=== PATIENT | female | born 1935 | race Caucasian/White ===

== ENCOUNTER 2018-05-28 17:07 | Inpatient (IN) | payer OTHER ==
[~2018-05-28] VITALS: Ht 160 cm; Wt 40.8 kg
[2018-05-28 17:07] VITALS: BP_SYST 116
[~2018-05-28 17:07] MED LIST: AMIO200T PO; DICL-8 PO; LISI10TA5 PO; METH2.5T PO; PRED5TAB PO; TRAZ50TA54 PO
[2018-05-28] MEDS ORDERED: CLINDAMYCIN 600 mg/50mL D5W 50 ML IV ONE (17:30)
[2018-05-28] MEDS ORDERED: VANCOMYCIN HCL 1,000 MG in NS 250 ML IV ONE (17:45)
[2018-05-28] MEDS: PIPERACILLIN/TAZO 3.375/DEX-IS 50 ML IV SCH (18:00)
[2018-05-28 18:17] LABS: HEMATOCRIT 30.5 % (36-48); HEMOGLOBIN 10.5 g/dL (12.0-16.0); MEAN CORPUSCULAR HEMOGLOBIN 31 pg (27-31); MEAN CORPUSCULAR HGB CONC 34 % (32-36); MEAN CORPUSCULAR VOLUME 90 fL (79.0-98.0); PLATELET COUNT (AUTO) 540 K/uL (130-430)
[2018-05-28 18:23] LABS: ANION GAP 10 (5-15); CALCIUM 9.1 mg/dL (8.4-11.0); CHLORIDE 97 mmol/L (98-107); CREATININE 0.73 mg/dL (0.55-1.30); GLUCOSE 88 mg/dL (70-99); POTASSIUM 4.2 mmol/L (3.5-5.1); SODIUM SERUM 130 mmol/L (136-145); UREA NITROGEN, BLOOD 29 mg/dL (8-21)
[2018-05-28 18:25] LABS: BAND % (MANUAL) 4 % (0-6); BASOPHILS % (MANUAL) 0 % (0-2); EOSINOPHILS % (MANUAL) 0 % (0-7); LYMPHOCYTES % (MANUAL) 4 % (20-46); MONOCYTES % (MANUAL) 7 % (0-11)
[2018-05-28 18:28] LABS: ALANINE AMINOTRANSFERASE 37 U/L (12-78); ALBUMIN 2.9 g/dL (3.4-4.8); ASPARTATE AMINOTRANSFERASE 48 U/L (10-37); TOTAL BILIRUBIN 0.4 mg/dL (0.0-1.0)
[2018-05-28] MEDS ORDERED: PIPERACILLIN/TAZOBACTAM 3.375 GM/VIAL (ZOSYN) IV ONE (19:15)
[2018-05-28] MEDS ORDERED: VANCOMYCIN HCL 1000 MG/VIAL IV ONE (20:01)
[2018-05-28] MEDS ORDERED: IBUP-1969 PO (20:01)
[2018-05-28] MEDS ORDERED: HYDR-4272 PO (20:01)
[2018-05-28] MEDS ORDERED: LISI10TA5 PO (20:01)
[2018-05-28] MEDS ORDERED: ZOLPIDEM TARTRATE 5 MG TABLET PO PRN (21:00)
[2018-05-28] MEDS ORDERED: ACETAMINOPHEN 325 MG TABLET PO PRN (21:00)
[2018-05-28 21:19] VITALS: BP_SYST 119
[2018-05-28 21:35] LABS: BILIRUBIN,URINE NEGATIVE (NEGATIVE); BLOOD, URINE 1+ (NEGATIVE); CLARITY/URINE SL CLOUDY (CLEAR); COLOR,URINE YELLOW (YELLOW); GLUCOSE,URINE NEGATIVE (NEGATIVE); KETONES,URINE NEGATIVE (NEGATIVE); LEUKOCYTE ESTERASE ,URINE 2+ (NEGATIVE); NITRITE, URINE NEGATIVE (NEGATIVE); PROTEIN URINE TRACE (NEGATIVE); UROBILINOGEN,URINE 0.2 (0.2-1.0)
[2018-05-28 21:53] LABS: BACTERIA,URINE FEW /HPF (None Seen); RBC,URINE 0-3 /HPF (0-3)
[2018-05-28 21:55] LABS: MUCUS,URINE None Seen /LPF (None Seen)
[2018-05-28] MEDS ORDERED: LEVOFLOXACIN 500 MG/D5W 100 ML IV SCH (22:00)
[2018-05-28] MEDS ORDERED: LEVOFLOXACIN 500 MG/D5W 100 ML IV ONE (22:30)
[2018-05-28] MEDS: LISINOPRIL 10 MG TABLET (PRINIVIL) PO SCH (22:31)
[2018-05-28] MEDS: HYDROcodone/ACETAMIN 5-325 MG TAB (NORCO/ VICODIN) PO PRN (23:48)
[2018-05-29 04:32] VITALS: BP_SYST 94
[2018-05-29] MEDS: PIPERACILLIN/TAZO 3.375/DEX-IS 50 ML IV SCH ×2 (06:00)
[2018-05-29 06:55] LABS: BASOPHILS # (AUTO) 0.1 K/uL (0.0-0.2); BASOPHILS % (AUTO) 0.3 % (0.0-2.0); EOSINOPHILS # (AUTO) 0.1 K/uL (0.0-0.4); EOSINOPHILS % (AUTO) 0.3 % (0.0-4.0); HEMATOCRIT 27.3 % (36-48); LYMPHOCYTES # (AUTO) 0.5 K/uL (1.0-5.5); MEAN CORPUSCULAR HEMOGLOBIN 30 pg (27-31); MEAN CORPUSCULAR HGB CONC 33 % (32-36); MEAN CORPUSCULAR VOLUME 89 fL (79.0-98.0); MONOCYTES # (AUTO) 1.2 K/uL (0.0-1.0); MONOCYTES % (AUTO) 6.8 % (1.7-9.3); NEUTROPHILS # (AUTO) 15.5 K/uL (1.8-7.7); NEUTROPHILS % (AUTO) 89.6 % (40.0-70.0); PLATELET COUNT (AUTO) 410 K/uL (130-430); RED BLOOD CELL COUNT(AUTO) 3.06 MIL/uL (4.2-6.2); WHITE BLOOD COUNT (AUTO) 17.4 K/uL (4.8-10.8)
[2018-05-29 07:23] LABS: ALANINE AMINOTRANSFERASE 32 U/L (12-78); ALBUMIN 1.9 g/dL (3.4-4.8); ANION GAP 8 (5-15); ASPARTATE AMINOTRANSFERASE 43 U/L (10-37); CALCIUM 8.3 mg/dL (8.4-11.0); CHLORIDE 101 mmol/L (98-107); CREATININE 0.56 mg/dL (0.55-1.30); GLUCOSE 88 mg/dL (70-99); POTASSIUM 3.6 mmol/L (3.5-5.1); SODIUM SERUM 134 mmol/L (136-145); TOTAL BILIRUBIN 0.4 mg/dL (0.0-1.0); UREA NITROGEN, BLOOD 21 mg/dL (8-21)
[2018-05-29 08:18] VITALS: BP_SYST 118
[2018-05-29] MEDS: IBUPROFEN 600 MG TABLET PO PRN ×2 (08:59→19:07)
[2018-05-29] MEDS: FAMOTIDINE 20 MG TABLET PO SCH (08:59)
[2018-05-29] MEDS: PREDNISONE 10 MG TABLET PO SCH (09:00)
[2018-05-29 12:10] VITALS: BP_SYST 112
[2018-05-29] MEDS ORDERED: ENOXAPARIN SODIUM 30 MG/0.3 ML SYRINGE SUBCUT ONE (13:15)
[2018-05-29] MEDS: POTASSIUM CHLORIDE 10 MEQ in NACL 0.9% 1,000 ML IV SCH (14:50)
[2018-05-29] MEDS: HYDROcodone/ACETAMIN 5-325 MG TAB (NORCO/ VICODIN) PO PRN (15:58)
[2018-05-29 16:00] VITALS: BP_SYST 115
[2018-05-29 19:50] VITALS: BP_SYST 116
[2018-05-29] MEDS: LEVOFLOXACIN 250 MG/D5W 50 ML IV SCH (21:10)
[2018-05-29] MEDS: LISINOPRIL 10 MG TABLET (PRINIVIL) PO SCH (21:10)
[2018-05-30] MEDS: HYDROcodone/ACETAMIN 5-325 MG TAB (NORCO/ VICODIN) PO PRN ×2 (01:30→18:43)
[2018-05-30 01:43] VITALS: BP_SYST 129
[2018-05-30] MEDS: POTASSIUM CHLORIDE 10 MEQ in NACL 0.9% 1,000 ML IV SCH ×2 (04:48→13:11)
[2018-05-30] MEDS: IBUPROFEN 600 MG TABLET PO PRN (04:49)
[2018-05-30 07:03] LABS: BASOPHILS % (AUTO) 0.2 % (0.0-2.0); EOSINOPHILS # (AUTO) 0.1 K/uL (0.0-0.4); EOSINOPHILS % (AUTO) 0.9 % (0.0-4.0); HEMOGLOBIN 9.2 g/dL (12.0-16.0); LYMPHOCYTES % (AUTO) 6.3 % (20.5-51.5); MEAN CORPUSCULAR HEMOGLOBIN 30 pg (27-31); MEAN CORPUSCULAR HGB CONC 34 % (32-36); MEAN CORPUSCULAR VOLUME 88 fL (79.0-98.0); MONOCYTES # (AUTO) 0.9 K/uL (0.0-1.0); MONOCYTES % (AUTO) 5.6 % (1.7-9.3); NEUTROPHILS # (AUTO) 13.5 K/uL (1.8-7.7); PLATELET COUNT (AUTO) 406 K/uL (130-430); RED BLOOD CELL COUNT(AUTO) 3.09 MIL/uL (4.2-6.2); WHITE BLOOD COUNT (AUTO) 15.5 K/uL (4.8-10.8)
[2018-05-30 07:16] LABS: ALANINE AMINOTRANSFERASE 37 U/L (12-78); ALBUMIN 1.9 g/dL (3.4-4.8); ANION GAP 5 (5-15); ASPARTATE AMINOTRANSFERASE 53 U/L (10-37); CALCIUM 8.3 mg/dL (8.4-11.0); CHLORIDE 103 mmol/L (98-107); CREATININE 0.59 mg/dL (0.55-1.30); GLUCOSE 102 mg/dL (70-99); TOTAL BILIRUBIN 0.1 mg/dL (0.0-1.0); UREA NITROGEN, BLOOD 24 mg/dL (8-21)
[2018-05-30 07:22] LABS: SODIUM SERUM 134 mmol/L (136-145)
[2018-05-30 08:00] VITALS: BP_SYST 133
[2018-05-30] MEDS: FAMOTIDINE 20 MG TABLET PO SCH (08:33)
[2018-05-30] MEDS: PREDNISONE 10 MG TABLET PO SCH (08:33)
[2018-05-30] MEDS: ENOXAPARIN SODIUM 30 MG/0.3 ML SYRINGE SUBCUT SCH (08:36)
[2018-05-30] MEDS ORDERED: VANCOMYCIN HCL 1 GM/NS PREMIX 250 ML IV ONE (10:30)
[2018-05-30 12:00] VITALS: BP_SYST 112
[2018-05-30 15:37] VITALS: BP_SYST 111
[2018-05-30] MEDS ORDERED: BISACODYL 10 MG/SUPPOSITORY RC ONE (15:45)
[2018-05-30 19:00] VITALS: BP_SYST 132
[2018-05-30 20:00] VITALS: BP_SYST 132
[2018-05-30] MEDS ORDERED: MILK OF MAGNESIA 30 ML UDC PO SCH (21:00)
[2018-05-30] MEDS: DOCUSATE SODIUM 250 MG CAPSULE PO SCH (21:19)
[2018-05-30] MEDS: LEVOFLOXACIN 250 MG/D5W 50 ML IV SCH (21:19)
[2018-05-30] MEDS: LISINOPRIL 10 MG TABLET (PRINIVIL) PO SCH (21:20)
[2018-05-31] VITALS: BP_SYST 124
[2018-05-31] MEDS: POTASSIUM CHLORIDE 10 MEQ in NACL 0.9% 1,000 ML IV SCH ×2 (01:45→10:36)
[2018-05-31 08:43] VITALS: BP_SYST 127
[2018-05-31] MEDS: DOCUSATE SODIUM 250 MG CAPSULE PO SCH (09:01)
[2018-05-31] MEDS: FAMOTIDINE 20 MG TABLET PO SCH (09:02)
[2018-05-31] MEDS: ENOXAPARIN SODIUM 30 MG/0.3 ML SYRINGE SUBCUT SCH (09:03)
[2018-05-31] MEDS ORDERED: VANCOMYCIN HCL 1 GM/NS PREMIX 250 ML IV SCH (11:00)
[2018-05-31 12:10] VITALS: BP_SYST 144
[2018-05-31 16:00] VITALS: BP_SYST 102
[2018-05-31 17:16] VITALS: BP_SYST 144
== END 2018-05-31 19:25 | disposition short-term general hospital (02) | DRG 602 ==
LOC: SED 17:07 → STU 17:07 → SMU 05-30 16:40
PROVIDERS: ADMIT Internal Medicine; ATTEND Internal Medicine
DX: L03.116 Cellulitis of left lower limb (principal); E43 Unspecified severe protein-calorie malnutrition; R65.10 Systemic inflammatory response syndrome (SIRS) of non-infectious origin without acute organ dysfunction; E87.1 Hypo-osmolality and hyponatremia; N39.0 Urinary tract infection, site not specified; Z68.1 Body mass index [BMI] 19.9 or less, adult; I10 Essential (primary) hypertension; I48.91 Unspecified atrial fibrillation; M06.9 Rheumatoid arthritis, unspecified; D64.9 Anemia, unspecified; R79.89 Other specified abnormal findings of blood chemistry; K59.00 Constipation, unspecified; Z85.3 Personal history of malignant neoplasm of breast; Z92.21 Personal history of antineoplastic chemotherapy; Z90.49 Acquired absence of other specified parts of digestive tract; Z79.899 Other long term (current) drug therapy; Z90.12 Acquired absence of left breast and nipple; Z88.0 Allergy status to penicillin; Z82.49 Family history of ischemic heart disease and other diseases of the circulatory system
CPT/HCPCS: 36415; 71045; 73590-TC; 74018; 80053; 81000-TC; 83605; 85007; 85025; 85027; 85610-TC; 85730-TC; 87040-TC; 87070-TC; 87186-TC; 93005; 96365; 96367; 97530-GP; 99285; J1650; J1956; J2543; J3370; J3480; J3490; J7030; J7050; J7512